=== PATIENT | female | born 1995 ===

== ENCOUNTER 2019-02-26 05:40 | Day surgery (SDC) | payer OTHER ==
[2019-02-26] MEDS ORDERED: ULTRACET PO (12:12)
[2019-02-26] MEDS ORDERED: NAPR500T14 PO (12:12)
[2019-02-26] MEDS ORDERED: COLACE100 MG PO (12:13)
== END 2019-02-26 15:25 | disposition home or self-care (01) ==
LOC: CIR.AMB 05:40
DX: D27.0 Benign neoplasm of right ovary (principal)

== ENCOUNTER 2019-05-21 06:00 | Day surgery (SDC) | payer OTHER ==
[~2019-05-21 06:00] MED LIST: COLACE100 MG PO; NAPR500T14 PO; ULTRACET PO
== END 2019-05-21 13:00 | disposition home or self-care (01) ==
LOC: CIR.AMB 06:00 → O/R 07:32 → SURG 07:32 → EDSTATUS 08:45 → ADM 08:45 → CIR.AMB 08:45 → SURG 16:15 → O/R 20:15
DX: C56.1 Malignant neoplasm of right ovary (principal)